=== PATIENT | male | born 1995 | race Caucasian/White ===

== ENCOUNTER 2021-11-24 15:28 | Emergency (ER) | payer BC, SELFPAY ==
--- NOTE | ~2021-11-24 | XR_ITS ---
EXAMINATION: XR ankle LT min 3V DATE: 11/24/2021 16:00 INDICATION: Left ankle pain. Fall from ladder. TECHNIQUE: 4 views of left ankle were obtained. COMPARISON: None. FINDINGS: Bone alignment is normal. No fracture. 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 There is an enthesophyte at posterior aspect of calcaneal tuberosity. Ankle soft tissue swelling is noted. IMPRESSION: 1. No fracture. Reviewed, dictated and finalized at location B. IMPRESSION: 1. No fracture.
--- NOTE | ~2021-11-24 | XR_ITS ---
EXAM: XR foot LT min 3V HISTORY: PT FELL, PAIN GENERALIZED LT ANKLE INTO LT FOOT COMPARISON: None available FINDINGS: Normal mineralization. No fracture or dislocation. No lytic or blastic lesion. Minimal mid foot osteoarthritis. Prominent os trigonum. Achilles enthesopathy. No erosion or periosteal change. S oft tissues within normal limits. IMPRESSION: No acute osseous finding in the left foot. Reviewed, dictated and finalized at location K.
[2021-11-24 15:37] VITALS: BP 127/91; PULSE 82; RESP 16; TEMP 36.8; O2SAT 98
--- NOTE | 2021-11-24 16:42 | ED.LOWEXIN ---
HPI - Extremity Injury (Lower) General Chief Complaint: Extremity Injury, Lower Stated Complaint: Left Ankle Injury Time Seen by Provider: 11/24/21 16:10 Source: patient, RN notes reviewed and old records reviewed Mode of arrival: ambulatory Limitations: no limitations History of Present Illness HPI Narrative: 26-year-old male who presents per wheelchair to [facility] with complaints that he fell off of a 4 foot ladder into a trailer about 1030 this morning has swelling pain to left ankle bilateral aspects with more pain laterally. Patient has swelling present to bilateral ankle areas with greatest on lateral aspect. He reports taking Ibuprofen and a muscle relaxer at about 1130 today for his pain with no improvement. He states that he has no tingling or numbness to foot, is unable to weight bear on his left foot at this time, mobility of foot and ankle impaired due to increased pain, strong pulses to left foot present. MD complaint: ankle injury Onset (ago): hour(s) (1030 this morning) Injury: Left: ankle and foot Type of Injury: blunt Place: work Severity: severe Severity scale (1-10): 10 Relieving factors: nothing Exacerbating factors: weight bearing Context: fall and direct blow Associated symptoms: swelling Treatments prior to arrival: cold therapy and NSAIDS Related Data Home Medications Medication Instructions Recorded Confirmed No Home Medications 11/24/21 11/24/21 Allergies Allergy/AdvReac Type Severity Reaction Status Date / Time No Known Allergies Allergy Verified 11/24/21 15:43 Review of Systems Review of Systems: CONSTITUTIONAL: Denies fever, chills, or sweats. EYES: Denies visual changes, redness, or discharge. ENT: Denies rhinorrhea, congestion, sore throat, or otalgia. CARDIOVASCULAR: Denies chest pain, palpitations, or edema. RESPIRATORY: Denies cough or dyspnea. GASTROINTESTINAL: Denies abdominal pain, nausea, vomiting, or diarrhea. GENITOURINARY: Denies dysuria or hematuria. SKIN: Denies rash or itching. MUSCULOSKELETAL: Denies back pain,positive for left foot and ankle pain with swelling noted to ankle area, no other joint pain, or myalgia. NEUROLOGIC: Denies headache, numbness, or weakness. PSYCHIATRIC: Denies anxiety or depression. All systems reviewed & are unremarkable except as noted in HPI and below PMFSH Past Medical History Medical History (Updated 11/25/21 @ 08:57 by Genna Pimentel NP) No acute medical problems Surgical History Surgical History (Updated 11/25/21 @ 08:55 by Genna Pimentel NP) History of placement of ear tubes Social History Social History (Updated 11/25/21 @ 08:55 by Genna Pimentel NP) Smoking status: Never smoker Alcohol intake: current Alcohol use details: social Substance use: unknown Gender identity (if verbalized by the patient): Male Exam Narrative: GENERAL: Well-appearing, well-nourished, and in some acute distress due to pain. HEAD: Normocephalic, atraumatic. EYES: PERRLA and EOMI. ENT: Nares clear, no rhinorrhea or epistaxis. Mucous membranes moist.TM's normal throat pink with no abnormality noed NECK: Supple.no lymphadenopathy CHEST: Lungs clear on auscultation. No respiratory distress.SAO2 98% on room air HEART: Regular rate and rhythm. No murmur heard. Normal peripheral pulses. ABDOMEN: Soft, nontender, nondistended, normal active bowel sounds. EXTREMITIES: Normal range of motion. No edema.Exception noted to left ankle and foot pain due to injury today,moderate swelling present to ankle region, mild swelling to dorsal aspect of left foot, circulation and sensation is intact to foot, patient is unable to bear full weight due to pain,increase pain with flexion and extension of foot noted SKIN: Warm, dry, no rash. NEURO: No focal deficits. Alert and oriented x3. Course Course Level of Care: Express Care Visit Vital Signs Vital signs: Vital Signs Temperature 36.8 C 11/24/21 15:37 Pulse Rate 82 11/24/21 15:37
--- NOTE | 2021-11-24 16:55 | PC.NURSE ---
crutch training complete.
== END 2021-11-24 17:02 | disposition home or self-care (01) ==
PROVIDERS: Emergency Provider Registered Nurse; PCP Physician Assistant
DX: S93.402A Sprain of unspecified ligament of left ankle, initial encounter (principal); S96.912A Strain of unspecified muscle and tendon at ankle and foot level, left foot, initial encounter; W11.XXXA Fall on and from ladder, initial encounter
CPT/HCPCS: 73610; 73630; 99213; G0463